=== PATIENT | female | born 1980 | race Caucasian/White ===

== ENCOUNTER 2022-01-27 08:16 | Emergency (ER) ==
[~2022-01-27] VITALS: Ht 167.6 cm; Wt 96.1 kg
[2022-01-27 08:16] VITALS: BP 137/89
[2022-01-27] MEDS ORDERED: APAP325T4 PO (08:21)
[2022-01-27] MEDS ORDERED: IBUP-1022 PO (08:21)
[2022-01-27] MEDS ORDERED: MUCI1TAB16 PO (08:21)
== END 2022-01-27 10:06 | disposition left against medical advice (07) ==
LOC: M ED 08:16
DX: Z53.21 Procedure and treatment not carried out due to patient leaving prior to being seen by health care provider (principal)

== ENCOUNTER 2022-09-10 08:15 | Emergency (ER) | payer SELFPAY ==
[~2022-09-10] VITALS: Ht 167.6 cm; Wt 97.4 kg
[~2022-09-10 08:15] MED LIST: APAP325T4 PO; IBUP-1022 PO; MUCI1TAB16 PO
[2022-09-10 08:16] VITALS: BP 139/80
[2022-09-10] MEDS ORDERED: BUPR150T12 (08:26)
== END 2022-09-10 09:05 | disposition left against medical advice (07) ==
LOC: M ED 08:15
DX: Z53.21 Procedure and treatment not carried out due to patient leaving prior to being seen by health care provider (principal)

== ENCOUNTER → 2022-09-27 | Outpatient (REF) | payer OTHER ==
[~2022-09-27] MED LIST changes: +BUPR150T12
== END ==
LOC: M WUC 12:25
PROVIDERS: ATTEND Physician Assistant
DX: J06.9 Acute upper respiratory infection, unspecified (principal)

== ENCOUNTER 2022-12-17 06:49 | Emergency (ER) | payer OTHER ==
[~2022-12-17] VITALS: Ht 167.6 cm; Wt 99.0 kg
[2022-12-17 06:49] VITALS: BP 140/85
[2022-12-17 09:31] LABS: BASO % 0.4 % (0.0-1.0); EOS % 0.3 % (0.0-3.0); HEMATOCRIT 46.2 % (36.0-47.0); HEMOGLOBIN 14.5 g/dl (12.0-15.5); LYMPH # 0.8 10^3/uL (1.5-5.0); LYMPH % 7.6 % (24.0-44.0); MEAN CORPUSCULAR HEMOGLOBIN 28.4 pg (27.0-33.0); MEAN CORPUSCULAR HGB CONC 31.4 g/dl (32.0-36.5); MEAN CORPUSCULAR VOLUME 90.4 fl (80.0-96.0); MONO # 0.4 10^3/uL (0.0-0.8); MONO % 3.3 % (2.0-8.0); NEUTROPHILS # 9.4 10^3/uL (1.5-8.5); PLATELET COUNT, AUTOMATED 269 10^3/uL (150-450); RED BLOOD COUNT 5.11 10^6/uL (4.00-5.40); WHITE BLOOD COUNT 10.6 10^3/uL (4.0-10.0)
[2022-12-17 09:54] LABS: LIPASE 29 U/L (12-53)
[2022-12-17 09:59] LABS: ALBUMIN 3.9 G/DL (3.2-5.2); ALKALINE PHOSPHATASE 80 U/L (46-116); ALT/SGPT 24 U/L (7.0-40); AST/SGOT 21 U/L (<34); BILIRUBIN,DIRECT 0.1 MG/DL (<0.4); BILIRUBIN,TOTAL 0.4 MG/DL (0.3-1.2); BLOOD UREA NITROGEN 10 MG/DL (9-23); CALCIUM LEVEL 8.7 MG/DL (8.5-10.1); CARBON DIOXIDE LEVEL 24 MMOL/L (20-31); CHLORIDE LEVEL 107 MMOL/L (98-107); CREATININE FOR GFR 0.98 MG/DL (0.55-1.30); GLOMERULAR FILTRATION RATE > 60.0 (>58); GLUCOSE, FASTING 110 MG/DL (60-100); POTASSIUM SERUM 4.3 MMOL/L (3.5-5.1); SODIUM LEVEL 139 MMOL/L (136-145); TOTAL PROTEIN 6.4 G/DL (5.7-8.2)
== END 2022-12-17 10:18 | disposition left against medical advice (07) ==
LOC: M ED 06:49
DX: Z53.21 Procedure and treatment not carried out due to patient leaving prior to being seen by health care provider (principal)

== ENCOUNTER → 2023-07-28 | Outpatient (CLI) | payer OTHER | LOC: M CARPUL 10:42 | PROVIDERS: ATTEND Family Medicine | DX: I08.0 Rheumatic disorders of both mitral and aortic valves (principal); M79.89 Other specified soft tissue disorders ==

== ENCOUNTER → 2024-07-17 | Outpatient (REF) | payer OTHER | LOC: M LAB REF 12:13 | PROVIDERS: ATTEND Physician Assistant | DX: R52 Pain, unspecified (principal) ==